=== PATIENT | female | born 1970 | race Two or more races ===

== ENCOUNTER 2016-10-26 19:18 | Emergency (ER) | payer OTHER ==
[~2016-10-26] VITALS: Ht 165.1 cm; Wt 102.1 kg
[2016-10-26] MEDS ORDERED: NKM (19:26)
[2016-10-26] MEDS ORDERED: Lidocaine 1% MPF 10mg/ml 5ml IM ONE (19:45)
[2016-10-26 19:54] VITALS: BP 144/97
[2016-10-26 20:45] VITALS: BP 132/87
[2016-10-26] MEDS ORDERED: ROBAXIN-750750 MG PO (20:49)
[2016-10-26] MEDS ORDERED: NAPROXEN500 M2 ORAL (20:49)
--- NOTE | 2016-10-26 20:50 | Emergency Room Report ---
History of Present Illness General Chief Complaint: Pain Source: Patient Present Illness HPI 46 y/o female c/o left shoulder pain x 6 months. States pain is worse with ROM of left shoulder with pain that radiates to left hand and up the left side of neck causing headache along left side of head. Has gone through PT in the past with improvement along with steroid injections of left shoulder Q3 months. States pain is currently 10/10 of the left shoulder. Takes 500mg tylenol w/o improvement. Patient denies any numbness, tingling, pressure, paralysis, cyanosis, bruising, loss of sensation, or loss of range of motion.Denies any current n/v/f/c/d, abd pain, photophobia, phonophobia, CP, SOB or headache. Allergies: Coded Allergies: No Known Allergies (Unverified , 10/26/16) Patient History Past Medical History: see triage record Past Surgical History: none Pertinent Family History: none Last Menstrual Period: Sep 23 2016 Now: No Reviewed Nursing Documentation: PMH: Agreed, PSxH: Agreed Nursing Documentation-PMH Past Medical History: No Stated History Review of Systems All Other Systems: negative except mentioned in HPI Physical Exam Vital Signs Date Time Temp Pulse Resp B/P Pulse Ox O2 Delivery O2 Flow Rate FiO2 10/26/16 19:21 76 16 144/97 96 Room Air Sp02 EP Interpretation: reviewed, normal General Appearance: no apparent distress, alert, GCS 15, non-toxic Head: normocephalic, atraumatic Eyes: bilateral eye PERRL, bilateral eye normal inspection ENT: normal ENT inspection, hearing grossly normal, normal pharynx, no angioedema, normal voice, TMs + canals normal, uvula midline Neck: full range of motion, supple/symm/no masses, tender lateral - left Respiratory: chest non-tender, lungs clear, normal breath sounds, speaking full sentences Cardiovascular #1: regular rate, rhythm, no edema Cardiovascular #2: 2+ radial (R), 2+ radial (L) Musculoskeletal: back normal, gait/station normal, normal range of motion, tender - Left anterior shoulder and left trapezius region assoc w/ muscle spasm and trigger point. Neurologic: alert, oriented x3, responsive, motor strength/tone normal, sensory intact, speech normal Psychiatric: judgement/insight normal, memory normal, mood/affect normal, no suicidal/homicidal ideation Skin: normal color, no rash, warm/dry, well hydrated Procedures Additional Procedure Procedure Narrative After verbal consent was obtained, the skin was prepped using Betadine, using clean technique, a 27g 1-1/4" needle was used to inject 1.5cc of 1% lidocaine w/ o epi into area of spam of left shoulder and injected into a fan like distribution. The needle was then withdrawn and the wound covered with a bandaid. The process was then repeated for a second trigger point at left trapezius region. Patient experienced an immediate decrease in pain and multiple twitch responses were illicited with trigger point therapy. The patient tolerated procedure well w/o complications and was instructed on post procedural care. Patient pain went from 10/10 to 3/10 after therapy. Medical Decision Making PA Attestation Dr. Waldrop my supervising physician with whom patient management has been discussed with. Diagnostic Impression: Primary Impression: Muscle spasm of left shoulder Additional Impressions: Muscle spasm of back Tension headache ER Course Pt. presents to the ED c/o shoulder pain Ddx considered but are not limited to strain, sprain, dislocation, contusion, adhesive capsulitis, fracture, shoulder impingement Vital signs: are WNL, pt. is afebrile H&PE are most consistent with muscle spasm ORDERS:diagnosis is clinical ED INTERVENTIONS: Trigger point left shoulder / back w/ 1% lidocaine w/o epi 1.5 cc x 2 sites (left trap and left shoulder) with 27g 1-1/4" needle. DISCHARGE: Patient's pain went from 10/10 and currently 3/10. At this time pt. is stable for d/c to home. Will provide printed patient care instructions, and any necessary prescriptions. Care plan and follow up instructions have been discussed with the patient prior to discharge. Last Vital Signs Date Time Temp Pulse Resp B/P Pulse Ox O2 Delivery O2 Flow Rate FiO2 10/26/16 19:21 76 16 144/97 96 Room Air Disposition: HOME, SELF-CARE Condition: Improved Scripts Methocarbamol* (ROBAXIN-750*) 750 Mg Tablet 750 MG PO TID, #30 TAB 0 Refills Prov: SABRY,TAMEEM P.A. 10/26/16 Naproxen* (NAPROXEN*) 500 Mg Tablet 500 MG ORAL TWICE A WEEK, #20 TAB 0 Refills Prov: SABRY,TAMEEM P.A. 10/26/16 Referrals: [facility],REFERRING (PCP) Patient Instructions: Muscle Cramps and Spasms, Tension Headache, Trigger Point Injection Additional Instructions: Take medication as directed. Advise patient to use RICE therapy and avoid exercises for the next 2-3 weeks to help rest the shoulder. Patient instructed to massage the muscles that are tight or tense, put ice for 5-7 minutes or a frozen bag of peas or cold gel pack on the area for 20 minutes at a time, a few times a day, put heat on the area to reduce pain and stiffness by either taking a hot shower or hot bath, or put a hot towel on the area for no more than 20 minutes at a time. Patient instructed to not use anything too hot that could burn your skin. LEESA MURILLO Oct 26, 2016 20:50
[2016-10-26 20:54] VITALS: BP 144/97
== END 2016-10-26 20:54 | disposition home or self-care (01) ==
LOC: EMR 19:30
DX: M62.838 Other muscle spasm (principal); M62.830 Muscle spasm of back; G44.209 Tension-type headache, unspecified, not intractable
CPT/HCPCS: 20552; 99284; Z7502